=== PATIENT | male | born 1965 | race American Indian/Alaskan Native ===

== ENCOUNTER 2018-06-24 00:13 | Emergency (ER) | payer MEDICAID ==
--- NOTE | 2018-06-24 00:32 | C.PDOC ---
History Of Present Illness 52 year old male is brought to the ED for evaluation of an overdose. As per Patient's he was in the dinning room when he suddenly passed out, she reports patient was not breathing unsure if he had a pulse so she started compressions. Patient has a history of heroin abuse. Patient was given IV narcan at the scene and woke up. Patient currently reports feeling fine, does not know what happened, does not remember. Patient denies heroin use, other chronic illnesses. Patient admits to smoking and drinking alcohol today. PMD: none <Courtney Kruse - Last Filed: 06/24/18 00:32> History Per: Patient, EMS, Family History/Exam Limitations: no limitations Onset/Duration Of Symptoms: Hrs Current Symptoms Are (Timing): Better Suicide/Self Injury Attempted (Context): None Modifying Factor(s): Narcotics Associated Symptoms: denies: Depression, Suicidal Thoughts, Suicidal Plan Recent travel outside of the [place]: No Additional History Per: Patient, <Courtney Kruse - Last Filed: 06/24/18 00:32> <Fariha Suero - Last Filed: 06/24/18 02:45> Time Seen by Provider: 06/24/18 00:25 Chief Complaint (Nursing): Psychiatric Evaluation Past Medical History Reviewed: Historical Data, Nursing Documentation, Vital Signs - Medical History PMH: No Chronic Diseases Surgical History: No Surg Hx Family History: States: Unknown Family Hx - Social History Hx Tobacco Use: Yes Hx Alcohol Use: Yes Hx Substance Use: Yes <Courtney Kruse - Last Filed: 06/24/18 00:32> Vital Signs: Last Vital Signs Temp 98.1 F 06/24/18 02:31 Pulse 70 06/24/18 02:31 Resp 16 06/24/18 02:31 BP 129/74 06/24/18 02:31 Pulse Ox 96 06/24/18 02:31 <Fariha Suero - Last Filed: 06/24/18 02:45> Review Of Systems Constitutional: Negative for: Fever, Chills Cardiovascular: Negative for: Chest Pain Respiratory: Negative for: Shortness of Breath Gastrointestinal: Negative for: Nausea, Vomiting, Abdominal Pain Skin: Negative for: Rash Psych: Positive for: Other (Overdose). Negative for: Depression, Suicidal ideation <Courtney Kruse - Last Filed: 06/24/18 00:32> Physical Exam - Physical Exam Appears: Non-toxic, No Acute Distress Chest: Symmetrical, No Tenderness, Other (no crepitus, step off) Cardiovascular: Rhythm Regular Respiratory: Normal Breath Sounds, No Rales, No Rhonchi, No Wheezing, Other (NARD) <Courtney Kruse - Last Filed: 06/24/18 00:32> ED Course And Treatment Pulse Ox Interpretation: Normal <Courtney Kruse - Last Filed: 06/24/18 00:32> - Laboratory Results Result Diagrams: 06/24/18 01:01 06/24/18 01:33 Lab Results: Troponin I 0.0280 ng/mL (0.00-0.120) 06/24/18 01:33 Total Bilirubin 0.3 mg/dL (0.2-1.3) 06/24/18 01:33 AST 27 U/L (17-59) 06/24/18 01:33 ALT < 6 U/L (21-72) L 06/24/18 01:33 Alkaline Phosphatase 63 U/L (38-126) 06/24/18 01:33 Total Protein 7.8 g/dL (6.3-8.3) 06/24/18 01:33 Albumin 4.3 g/dL (3.5-5.0) 06/24/18 01:33 Globulin 3.4 gm/dL (2.2-3.9) 06/24/18 01:33 Albumin/Globulin Ratio 1.3 (1.0-2.1) 06/24/18 01:33 <Fariha uSero - Last Filed: 06/24/18 02:45> Medical Decision Making Medical Decision Making: impression: Heroin overdose s/p naloxone administration Plan: * Patient to be observed * CXR <Courtney Kruse - Last Filed: 06/24/18 00:32> Disposition <Courtney Kruse - Last Filed: 06/24/18 00:32> Counseled Patient/Family Regarding: Studies Performed, Diagnosis, Need For Followup - Disposition Disposition Time: 02:45 <Fariha Suero Last Filed: 06/24/18 02:45> - Disposition Referrals: [facility] [Outside] Disposition: HOME/ ROUTINE Condition: STABLE Instructions: Narcotic Overdose (DC) Forms: [facility] (Malay) Print Language: TELUGU - Clinical Impression Clinical Impression: Opiate overdose - Scribe Statement The provider has reviewed the documentation as recorded by the Scribe Juancarlos Wheeler All medical record entries made by the Scribe were at my direction and personally dictated by me. I have reviewed the chart and agree that the record a ccurately reflects my personal performance of the history, physical exam, medical decision making, and the department course for this patient. I have also personally directed, reviewed, and agree with the discharge instructions and disposition. <Courtney Kruse - Last Filed: 06/24/18 00:32> Addendum Addendum: 06/24/18 02:41 Patient is currently resting comfortably, in no distress or pain. He is AAOx3, ambulating normally in the ED and clinically sober. Patient has no current physical complaints. Will discharge patient home at this time. He and understand he should be brought back to ED if he has any concerning symptoms. EKG- NSR 66bpm, left axis deviation, no acute ST/T wave changes, normal intervals <Fariha Suero - Last Filed: 06/24/18 02:45>
[2018-06-24 01:10] LABS: BASO % 0.1 % (0.0-2.0); EOS % 0.1 % (0.0-4.0); HEMOGLOBIN 14.3 g/dL (12.0-18.0); LYMPH # 0.8 K/uL (1.0-4.3); LYMPH % 6.7 % (20.0-40.0); MEAN CELL VOLUME 101.2 fL (80.0-94.0); MEAN CORPUSCULAR HEMOGLOBIN 33.9 pg (27.0-31.0); MEAN CORPUSCULAR HGB CONC 33.5 g/dL (33.0-37.0); MEAN PLATELET VOLUME 7.5 fL (7.2-11.7); MONO # 0.8 K/uL (0.0-0.8); MONO % 6.2 % (0.0-10.0); NEUT % 86.9 % (50.0-75.0); PLATELET COUNT 234 K/uL (130-400); RED CELL DISTRIBUTION WIDTH 15.1 % (11.5-14.5); WHITE BLOOD COUNT 12.7 K/uL (4.8-10.8)
[2018-06-24 01:58] LABS: ALB/GLOB RATIO 1.3 (1.0-2.1); ALBUMIN 4.3 g/dL (3.5-5.0); AST/SGOT 27 U/L (17-59); BLOOD UREA NITROGEN 9 mg/dL (9-20); GFR NON-AFRICAN AMERICAN > 60
[2018-06-24 02:20] LABS: ALT/SGPT < 6 U/L (21-72)
[2018-06-24 02:23] LABS: BANDS 1 % (0-2); LYMPHOCYTE 6 % (20-40); MONOCYTE 4 % (0-10); NEUTROPHIL 89 % (50-75); PLATELET ESTIMATE NORMAL (NORMAL); TOTAL CELLS COUNTED 100
[2018-06-24 02:32] VITALS: BP 129/74; PULSE 70; RESP 16; TEMP 98.1; O2SAT 96
--- NOTE | 2018-06-24 10:41 | RAD ---
Date of service: 06/24/2018 HISTORY: Shortness of breath COMPARISON: No prior. TECHNIQUE: Chest PA and lateral FINDINGS: LINES AND TUBES: None. LUNG AND PLEURA: The lungs are well inflated and clear. There are scattered calcified granulomas in the right lung. No pleural effusion or pneumothorax. HEART AND MEDIASTINUM: The heart is not enlarged. No aortic atherosclerotic calcifications present. The hilar and mediastinal contours are within normal limits. SKELETAL STRUCTURES: The bony structures are within normal limits for the patient's age. VISUALIZED UPPER ABDOMEN: Normal. OTHER FINDINGS: None. IMPRESSION: No active pulmonary disease.
--- NOTE | 2018-06-26 20:02 | CARD ---
APPROVED REPORT Date of service: 06/24/2018 EKG Measurement Heart [id number] <Conclusion> Normal sinus rhythm Normal ECG
== END 2018-06-24 02:47 | disposition home or self-care (01) ==
LOC: C.ER 00:13
DX: T40.1X1A Poisoning by heroin, accidental (unintentional), initial encounter (principal); Y92.9 Unspecified place or not applicable